=== PATIENT | female | born 1965 | race Two or more races ===

== ENCOUNTER → 2019-04-23 | Outpatient (CLI) | payer OTHER ==
[2019-04-23 11:06] LABS: Protein, Urine 5.9 mg/dL (0.0-11.9)
[2019-04-23 14:43] LABS: 24 Hr. Total Protein, Urine 70.8 mg/24 Hr (<149.1)
== END | disposition home or self-care (01) ==
LOC: LAB 10:27
PROVIDERS: ATTEND Internal Medicine Hematology & Oncology
DX: R77.9 Abnormality of plasma protein, unspecified (principal)
CPT/HCPCS: 84156